=== PATIENT | female | born 1990 | race Caucasian/White ===

== ENCOUNTER 2016-06-17 03:09 | Inpatient (IN) ==
[2016-06-17] MEDS ORDERED: Naloxone 0.4 MG/ML INJ IVP PRN (04:14)
[2016-06-17] MEDS ORDERED: Famotidine 20 MG/2 ML VIAL IVP PRN (04:14)
[2016-06-17] MEDS ORDERED: Metoclopramide 10 MG/2 ML VIAL IVP PRN (04:14)
[2016-06-17] MEDS ORDERED: *HR* Nalbuphine 20 MG/ML AMPUL IVP PRN ×2 (04:30→08:53)
[2016-06-17 05:02] LABS: Basophils % 0.2 %; Eosinophils # 0.1 K/mcL (0.0-0.6); Eosinophils % 0.4 %; Hematocrit 31.4 % (35.3-44.9); Hemoglobin 10.4 g/dL (11.5-15.4); Immature Granulocytes % 0.8 % (0-4); Lymphocytes # 2.8 K/mcL (0.6-4.6); Lymphocytes % 24.8 %; Mean Corpuscular HGB Conc 33.1 g/dL (31.6-35.5); Mean Corpuscular Hemoglobin 25.1 pg (28.0-33.3); Mean Corpuscular Volume 75.8 fL (83.0-100.0); Mean Platelet Volume 11.4 fL (9.4-12.4); Monocytes # 0.8 K/mcL (0.0-1.3); Monocytes % 7.3 %; Neutrophils # 7.6 K/mcL (1.6-8.9); Platelet Count 268 K/mcL (140-400); Red Blood Count 4.14 M/mcL (3.82-4.97); Red Cell Distribution Width 13.7 % (11.5-14.5); Segmented Neutrophils % 66.5 %
[2016-06-17] MEDS ORDERED: Oxytocin 20 units/ LR 1000 mL 20 UNIT/1,000 ML BAG IVC SCH (07:05)
[2016-06-17] MEDS: Ringers Solution, Lactated 1,000 ML IVC SCH ×3 (07:11→16:21)
--- NOTE | 2016-06-17 07:48 | OB/GYN History & Physical ---
Date of Encounter: 06/17/16 Time of Encounter: 07:45 Assessment and Plan (1) First in adolescent 16 years of age or older in third trimester Current visit: Yes Status: Acute (2) 40 weeks gestation of Current visit: Yes Status: Acute (3) Spontaneous rupture of membranes Current visit: Yes Status: Acute (4) Meconium in amniotic fluid affecting management of mother in third trimester Current visit: Yes Status: Acute Qualifiers: Fetus number: single or unspecified fetus Qualified Code(s): O36.8930 - Maternal care for other specified problems, third trimester, not applicable or unspecified (5) Active labor at term Current visit: Yes Status: Acute We will augment with Pitocin, plan is to anticipate normal spontaneous vaginal delivery History of Present Illness HPI: Ms. Sprague is a 25 year old female 1 para 0 at 40-0/7 weeks who presented to labor and delivery with complaint of spontaneous rupture membranes at approximately 2 AM. Patient was grossly ruptured on admission light meconium. Patient has been forest on and off started to get more comfortable after she started leaking. Patient was 2-3 cm last week in the office was 3-4 and admission. Patient's GBS status negative she is not 100% sure she wants an epidural at this time. Past Med Surg Social Fam HX - Past Medical History Medical history: no medical history Psychiatric history: anxiety, depression - Past Surgical History Surgical History: no surgical history - Social History Smoking Status: Never smoker Smokeless Tobacco Status: No Alcohol use: none Drug use: none Occupational status: employed Current living situation: Home - Independent Activity Level: Very active Recent Out of Country Travel Within the Last 8 Weeks: No Exposure or Possible Exposure to Illness During Travel: No - Family History Maternal Grandfather Adopted: No Living Status: Still Living Hx Family Endocrine Disorder: Yes (diabetes) Obstetrical History - Pregnancies : 1 Para: 0 Medications and Allergies Sertraline 75 mg PO DAILY 06/17/16 [History] Allergies No Known Allergies Allergy (Verified 06/17/16 03:26) Review of System OB All systems PM: reviewed and no additional remarkable complaints except as stated - Genitourinary Genitourinary: other (Leaking of fluid since 2 AM) Exam - Constitutional Constitutional: well developed, well nourished, mild distress, obese - Neck Neck exam: full ROM - Lungs Respiratory exam: CTAB - Cardiovascular Cardiovascular exam: RRR - Abdomen Abdomen: Present: gravid - Cervix Dilation: 4 Effacement: 80 Station: -2 - Comments Comments: heart tones 140s reactive contractions every 5 minutes irregular grossly ruptured and light meconium Results Result Diagrams: 06/17/16 03:40 Abnormal lab results WBC 11.4 K/mcL (4.3-11.1) H 06/17/16 03:40 Hgb 10.4 g/dL (11.5-15.4) L 06/17/16 03:40 Hct 31.4 % (35.3-44.9) L 06/17/16 03:40 MCV 75.8 fL (83.0-100.0) L 06/17/16 03:40 MCH 25.1 pg (28.0-33.3) L 06/17/16 03:40 All other labs normal. - VTE Reasons for not Prescribing Prophylaxis: Treatment not Indicated - Low risk for VTE
--- NOTE | 2016-06-17 08:55 | OB Labor Progress Note ---
Date of Encounter: 06/17/16 Time of Encounter: 08:50 Labor Progress Note - Subjective Subjective: Patient's getting uncomfortable requesting IV pain medication - Cervix Cervix: 4-5/80/-2 - Heart Tones Heart Tones: FSM placed FHT's 140 reactive - [place]: IUPC placed contractions every 2 min - Plan Plan: We will give the patient Nubain discussed epidural we will anticipate vaginal delivery
--- NOTE | 2016-06-17 09:27 | Anesthesia Evaluation PreOp ---
Date of Encounter: 06/17/16 Time of Encounter: 09:24 - Past History Planned Operation: [facility] Cardiac History: Denies any Significant Hx Pulmonary History: Denies Any Significant HX REPLENISHMENT BUYER History: Denies Any Significant HX Other Medical History: Denies Any Significant HX Anesthesia History: No Prior Anesthetic Complications : Yes (40 week) Test: Positive Alcohol Use: none Drug use: none Medications and Allergies Sertraline 75 mg PO DAILY 06/17/16 [History] Allergies No Known Allergies Allergy (Verified 06/17/16 03:26) - Meds/Allergy Pre-op Review Medications Reviewed: Yes Allergies Reviewed: No Beta Blockers on Current Med List: No Anesthesia Results - Labs 06/17/16 03:40 Anesthesia Exam 137/85 141 FHT 20 78 99% Height: 63 Weight: 128 NPO (# of Hours): mn Pain Scale: 6 - HEENT Pupil (Motor): Pupils equal Mallampati: II Teeth: Normal Oral Opening: Greater than 3 - REPLENISHMENT BUYER LOC: Oriented REPLENISHMENT BUYER Motor: Normal RUE, Normal LUE, Normal RLE, Normal LLE, Normal Face REPLENISHMENT BUYER Sensory: Normal: RUE, LUE, RLE, LLE, Face - Cardiac Rhythm: Regular JVD: No Carotid Bruit: No - Pulmonary Breath Sounds: bilateral Clear Respiratory Effort: Symmetrical Anesthesia Assess/Plan ASA Score: 2 Modified [place] Scale for Level of Consciousness: Cooperative, oriented, and tranquil Anesthetic Plan: Regional Autologous Blood: No Monitoring Plan: Standard Monitors
[2016-06-17] MEDS ORDERED: Epidural Premix (fent/bupiv) 110 ML EP SCH (09:30)
[2016-06-17] MEDS ORDERED: Epidural Premix (fent/bupiv) 110 ML EP ONE ×3 (09:32→23:20)
[2016-06-17] MEDS ORDERED: Bupivacaine-MPF 0.25% 10 ML VIAL ONE (11:59)
--- NOTE | 2016-06-17 12:30 | OB Labor Progress Note ---
Date of Encounter: 06/17/16 Time of Encounter: 12:30 Labor Progress Note - Subjective Subjective: Patient had to receive a second epidural is feeling much better at this time. - Cervix Cervix: 7/80/-1 - Heart Tones Heart Tones: heart tones 140s reactive - [place]: Contractions every 2 minutes - Plan Plan: Continue Pitocin and anticipate normal spontaneous vaginal delivery
--- NOTE | 2016-06-17 16:27 | OB Labor Progress Note ---
Date of Encounter: 06/17/16 Time of Encounter: 16:25 Labor Progress Note - Subjective Subjective: Patient still very comfortable with her epidural we are having difficulty getting her into a good contraction pattern. Every time we increased the Pitocin she has a long sustained contractions requiring us to turn a back down. - Cervix Cervix: 8/80/-2 - Heart Tones Heart Tones: heart tones 140s reactive - [place]: Contractions irregular every 2-5 minutes - Plan Plan: Continue Pitocin anticipate normal spontaneous vaginal delivery
--- NOTE | 2016-06-17 19:08 | OB Labor Progress Note ---
Date of Encounter: 06/17/16 Time of Encounter: 19:00 Labor Progress Note - Subjective Subjective: Patient still very comfortable - Cervix Cervix: 9/100/+1 - Heart Tones Heart Tones: FHT's 140's reactive contractions - [place]: contractions every 3-5 min - Plan Plan: continue pitocin anticipate
[2016-06-17] MEDS ORDERED: *HR* FentaNYL (PF) 100 MCG/2 ML VIAL ONE (20:59)
[2016-06-17] MEDS ORDERED: Penicillin G Potassium 5,000,000 UNIT in D5% in Water (Mini-Bag+) 100 ML IVPB ONE (23:35)
[2016-06-18] MEDS ORDERED: Lidocaine 1% 20 ML MDV ONE (00:48)
--- NOTE | 2016-06-18 02:07 | OB/GYN Procedure Note ---
Delivery - Delivery Date: 06/18/16 Provider: Candelario Mireles Intrapartum events: prolonged labor- > = 20hr Delivery augmentation: pitocin Delivery monitor: external FHT, external uterine, internal FHT, internal uterine Anesthesia: epidural Estimated Blood Loss: 200 - Infant (s) Infant A Delivery Date: 06/18/16 Infant Delivery Time: : Presentation: vertex Position: OA Route of delivery: Gender: Female Viability: Viable Pounds: 7 Ounces: 6 Weight Gram: 3.353 kg at 1 minute: 3 at 5 mins: 8 at 10 mins: 8 Shoulder Dystocia: not encountered Specimens collected: cord blood Placenta: spontaneous Cord: nuchal cord, 3 umbilical vessels - Repair Episiotomy: none Laceration Description: Perineal - 2nd Degree, Vaginal (Left sulcus tear) - Complications Delivery complications: none Delivery comments: Patient is a 25-year-old 1 para 0 at 40-0/7 weeks who presents to labor and delivery with spontaneous rupture membranes. Patient's had spontaneous rupture membranes approximately 2 AM on the . Patient was grossly ruptured on admission light meconium. She was augmented with Pitocin patient progressed slowly but appropriately. She did have to receive 2 epidurals second one worked well. Patient's progressed to complete and pushed for sure. At time delivering a viable female infant in occiput anterior presentation at 1:25 AM. There was nuchal cord 1 loose was delivered through the cord. Apgars were 3 at 1 minute and 8 at 5 minute 8 at 10 minutes. 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 Mireles instructional assistant [facility] OMS3 anesthesia epidural local estimated blood loss 200 mL. Patient had a second-degree perineal laceration with a left sulcus tear. This was repaired with a 3-0 Vicryl in the usual fashion. Cervix vagina was visualized intact. Infant was taken to nursery patient was left in labor and delivery to recover. She will be observed 2 hours before being taken to floor. - Disposition Mom disposition: stable in LDR disposition: taken to nursery
[2016-06-18] MEDS ORDERED: Measles/Mumps/Rubella Vacc 0.5 ML VIAL SQ PRN (05:36)
[2016-06-18] MEDS ORDERED: Acetaminophen 325 MG TABLET PO PRN (05:36)
[2016-06-18] MEDS ORDERED: Oxytocin 20 units/ LR 1000 mL 20 UNIT/1,000 ML BAG IV SCH (05:36)
[2016-06-18] MEDS ORDERED: Oxytocin 20 units/ LR 1000 mL 20 UNIT/1,000 ML BAG IVC ONE (05:36)
[2016-06-18] MEDS: Prenatal Vit/FA 1 EACH TABLET PO SCH (07:54)
[2016-06-18] MEDS: Ibuprofen 600 MG TABLET PO PRN ×2 (07:54→16:08)
[2016-06-19 03:29] LABS: Basophils % 0.2 %; Eosinophils # 0.1 K/mcL (0.0-0.6); Hematocrit 27.4 % (35.3-44.9); Immature Granulocytes % 0.9 % (0-4); Lymphocytes # 3.1 K/mcL (0.6-4.6); Lymphocytes % 27.6 %; Mean Corpuscular HGB Conc 31.8 g/dL (31.6-35.5); Mean Corpuscular Hemoglobin 24.9 pg (28.0-33.3); Mean Corpuscular Volume 78.3 fL (83.0-100.0); Mean Platelet Volume 11.4 fL (9.4-12.4); Monocytes # 0.9 K/mcL (0.0-1.3); Monocytes % 7.7 %; Platelet Count 235 K/mcL (140-400); Segmented Neutrophils % 62.6 %
[2016-06-19 03:31] LABS: Hemoglobin 8.7 g/dL (11.5-15.4)
[2016-06-19 07:55] VITALS: BP 132/87
[2016-06-19] MEDS: Prenatal Vit/FA 1 EACH TABLET PO SCH (08:53)
[2016-06-19] MEDS: Ibuprofen 600 MG TABLET PO PRN (08:53)
--- NOTE | 2016-06-19 09:40 | Discharge Summary ---
Date of Encounter: 06/19/16 Time of Encounter: 09:38 - Discharge Diagnosis (1) Status post vaginal delivery Priority: Primary Status: Acute Comments: Pt meeting milestones. (2) anemia Priority: Secondary Status: Acute Comments: Home on iron. - Discharge Medications Home Medications: Sertraline 75 mg PO DAILY 06/17/16 [History] Allergies/Adverse Reactions: Allergies No Known Allergies Allergy (Verified 06/17/16 03:26) Data Procedures and tests throughout hospitalization: Laboratory Tests 06/17/16 06/19/16 03:40 03:10 WBC 11.4 H 11.1 RBC 4.14 3.50 L Hgb 10.4 L 8.7 L D Hct 31.4 L 27.4 L MCV 75.8 L 78.3 L MCH 25.1 L 24.9 L MCHC 33.1 31.8 RDW 13.7 14.0 Plt Count 268 235 MPV 11.4 11.4 Immature Gran % 0.8 0.9 Seg Neutrophils % 66.5 62.6 Lymphocytes % 24.8 27.6 Monocytes % 7.3 7.7 Eosinophils % 0.4 1.0 Basophils % 0.2 0.2 Neutrophils # 7.6 7.0 Lymphocytes # 2.8 3.1 Monocytes # 0.8 0.9 Eosinophils # 0.1 0.1 Basophils # 0.0 0.0 Labs on day of discharge: Labs from last 24 hours 06/19/16 03:10 WBC 11.1 RBC 3.50 L Hgb 8.7 L D Hct 27.4 L MCV 78.3 L MCH 24.9 L MCHC 31.8 RDW 14.0 Plt Count 235 MPV 11.4 Immature Gran % 0.9 Seg Neutrophils % 62.6 Lymphocytes % 27.6 Monocytes % 7.7 Eosinophils % 1.0 Basophils % 0.2 Neutrophils # 7.0 Lymphocytes # 3.1 Monocytes # 0.9 Eosinophils # 0.1 Basophils # 0.0 Date of admission: 06/17/16 03:09 Primary care physician: Iraida Ponce CNP Consults: 06/18/16 05:36 Consult to Inclusion Special Educator [CONS] Routine Comment: Vaginal delivery, consult needed Discharging clinician: Janna Little Anticipated date of discharge: 06/19/16 - Patient Status Disposition: Home, Self-Care Condition: Good Functional capacity at discharge: independent ambulation Overall status at discharge: patient is progressing back to baseline - Discharge Instructions Follow Up With: Iraida Ponce, KASI [Primary Care Provider] - Candelario Mireles DO [Partnered Physician] - Additional Instructions: Perineal Care: Always wipe front to back Change your pad frequently Use your tata bottle with warm water and spray front to back Do not douche, use tampons, have sexual intercourse or put anything in your vagina for 4-6 weeks after delivery Bleeding: Vaginal bleeding can last up to 6 weeks Your menstrual period may return as early as 6 weeks after you are discharged from the hospital Eli/Stitches Care: Vaginal Delivery Vaginal stitches will dissolve within 4-6 weeks Follow perineal care instructions Care Stitches will dissolve on their own If you have eli, they will need to be removed in the doctors office within 5-7 days. You may shower with stitches or eli Drip plan or soapy water over the incision to clean. Pat dry gently with a clean towel. Make sure you completely dry under the skin folds DO NOT USE powders, lotions, rubbing alcohol or hydrogen peroxide on or around your incision. This will slow your wound healing It is normal to have soreness, burning, tingling, itchiness and/or numbness as your incision heals Activity: Rest frequently Do not lift anything heavier than a gallon of milk, up to 10-15 pounds No driving for 1-2 weeks for Vaginal delivery No driving for 2-4 weeks for delivery Take stairs slowly, one at a time Gradually increase your daily activity until you are back to your normal routine Do not exercise until you have had your follow-up appointment Bathing: Take a shower daily Do not take a tub bath for the first 4 weeks Diet: Drink plenty of water and fruit juices Eat a well-balanced diet with foods high in fiber such as fruits and vegetables Depression: Your hormones have a major impact on your feelings and emotions. Hormone imbalance may cause changes in your mood, creating unfamiliar thoughts and actions. Support is available to help you understand and cope with these feelings and mood changes. If you answer yes to any of the following questions, please call your health care provider: Are you having trouble sleeping? Are you feeling isolated? Have you lost your appetite? Are you having thoughts of hurting yourself or others? WARNING SIGNS: Heavy bleeding from the vagina (blood is bright red and soaks a sanitary pad in an hour or less.) Passing a blood clot larger than your fist Discharge from the vagina that has a bad odor Temperature over 100.4 F, or if you feel cold and have chills An episiotomy site that is warm, swollen or oozing. Use a mirror if needed Urination (pee) that is painful, very red and swollen or leaking fluid An incision that is painful, very red and swollen and leaking fluid An incision that has come open Breasts that are painful or full with flu like symptoms Redness, warmth or swelling in the calf of your leg Trouble breathing, dizziness, visual disturbance or faintness *Notify your health care provider immediately or go to the nearest Emergency Room if you experience any of the above signs.* To contact the nurses station 24 hours a day, For non-urgent, routine questions, please call the office at - Diet and Activity Activity: increase activity as tolerated Diet: advance to your usual diet Hospital Course Episiotomy: none Time Attestation: Total time spent providing and/or coordinating discharge services: Exam - Constitutional Vitals: Temp Pulse Resp BP Pulse Ox 97.8 F 85 16 132/87 100 06/19/16 07:53 06/19/16 07:53 06/19/16 07:53 06/19/16 07:53 06/19/16 07:53 General appearance IM: A&O X 3, pleasant, no acute distress - Respiratory Respiratory exam: Present: CTAB - Cardiovascular Cardiovascular exam IM: Present: RRR, +S1, +S2 - GI/Abdominal GI/Abdominal exam IM: soft - Rectal Rectal exam: deferred - Uterine Tone: Firm - Extremities Exam Extremities exam IM: Present: normal inspection, pedal edema (mild bilaterally) - Neurological Exam Neurological exam: normal gait, oriented X3 - Psychiatric Additional comments: pt reports good mood
[2016-06-19] MEDS ORDERED: Lanolin 7 G OINT...G. TP PRN (10:17)
== END 2016-06-19 11:30 | disposition home or self-care (01) ==
LOC: 1NENULAB → OBSVTOIN 03:09 → 1NENUOBS 06-18 05:36
PROVIDERS: ADMIT Obstetrics & Gynecology; ATTEND Obstetrics & Gynecology